=== PATIENT | female | born 1985 | race Caucasian/White ===

== ENCOUNTER 2016-06-01 18:01 | Emergency (ER) | payer SELFPAY ==
[2016-06-01 18:23] LABS: BASOPHILS % 0.6 (0.0-1.5); EOSINOPHILS % 1.8 % (0.0-6.8); MEAN CORPUSCULAR VOLUME 85.3 fl (80.0-100.0); MONOCYTES % 3.4 % (0.0-11.0); NEUTROPHILS # 6.2 # k/uL (1.4-7.7)
[2016-06-01] MEDS ORDERED: 0.9 % SODIUM CHLORIDE 1,000 ML IV ONE ×2 (18:30→18:31)
[2016-06-01 18:34] LABS: eGFR (African) > 60; eGFR (Non-African) > 60
--- NOTE | 2016-06-01 19:48 | ED Physician Documentation ---
Palpitations - HISTORIAN Historian: patient - HPI Stated Complaint: "Feels like Heart is Racing" Chief Complaint: Palpitations Onset: minutes Timing: sudden onset Associated Symptoms: heart racing Further Comments: yes (31 year old female patient presents with complaints of "heart racing". Patient reports tingling feeling, faint feeling. Denies caffeine use, no energy drinks, denies use of diet medications, denies drug use. ) - ROS CONST: no problems RESP: denies: productive cough, bloody cough GI/: denies: nausea, vomiting with blood, black stools, abdominal pain MS/SKIN/LYMPH: denies: ankle swelling, calf pain, rash, leg pain, other EYES/ENT: none NEURO/PSYCH: none - SOCIAL HX Smoking History: non-smoker Drug Use: marijuana - FAMILY HX Family History: none - PAST HX Cardiac Disease: other (renal calculi, PCOS, ovarian cyst) Surgeries/Procedures: , other (right ankle) Allergies/Adverse Reactions: Allergies Allergy/AdvReac Type Severity Reaction Status Date / Time meperidine HCl [From Demerol] Allergy Intermediate Rash Verified 06/01/16 18:13 silver sulfadiazine Allergy Intermediate Blister Verified 06/01/16 18:13 [From Silvadene] Home Medications: Ambulatory Orders Medication Instructions Recorded NK [NK] 06/01/16 - VITAL SIGNS Vital Signs: Vital Signs Temp Pulse Resp BP Pulse Ox 98 F 83 20 118/70 99 06/01/16 20:22 06/01/16 20:22 06/01/16 20:22 06/01/16 20:22 06/01/16 20:22 - REVIEWED ASSESSMENTS Nursing Assessment Reviewed: Yes Vitals Reviewed: Yes Progress - Progress Progress: strong odor of THC. Tachycardia resolved with 1L NS. Reviewed lab and UDS results with patient. Encouraged patient to stop using THC, explained it could be possible cause of palpitations. - EKG/XRAY/CT EKG: rhythm (SR, no acute changes, rate 92) ED Results Lab/Radiology - Lab Results Lab Results: Lab Results 06/01/16 06/01/16 06/01/16 18:15 18:15 18:15 WBC 9.10 K/ul K/ul (4.00-12.00) RBC 4.66 M/ul M/ul (3.90-5.20) Hgb 13.5 g/dL g/dL (12.0-16.0) Hct 39.7 % % (34.5-46.5) MCV 85.3 fl fl (80.0-100.0) MCH 29.0 pg pg (28.0-34.0) MCHC 34.0 g/dL g/dL (30.0-36.0) RDW 13.0 % % (11.3-14.3) Plt Count 320 K/mm3 K/mm3 (130-400) Neut % (Auto) 68.6 % % (39.0-79.0) Lymph % (Auto) 24.4 % % (16.0-50.0) Wilson % (Auto) 3.4 % % (0.0-11.0) Eos % (Auto) 1.8 % % (0.0-6.8) Baso % (Auto) 0.6 (0.0-1.5) Neut # 6.2 # k/uL # k/uL (1.4-7.7) Lymph # 2.2 # k/uL # k/uL (0.6-4.0) Wilson # 0.3 # k/uL # k/uL (0.0-0.9) Eos # 0.2 # k/uL # k/uL (0.0-0.6) Baso # 0.1 # k/uL # k/uL (0.0-0.5) Reactive Lymphs % 1.2 % % (0.0-5.0) Reactive Lymphs # 0.1 # k/uL # k/uL (0.0-0.8) Sodium 136 mmol/L mmol/L (136-145) Potassium 3.4 mmol/L L mmol/L (3.5-5.0) Chloride 103 mmol/L mmol/L (98-110) Carbon Dioxide 27 mmol/L mmol/L (20-32) BUN 14 mg/dL mg/dL (10-26) Creatinine 0.7 mg/dL mg/dL (0.4-1.5) Estimated Creat Clear 125 Est GFR ( Amer) > 60 (60 - ) Est GFR (Non-Af Amer) > 60 (60 - ) Glucose 135 mg/dL H mg/dL (70-99) Calcium 9.6 mg/dL mg/dL (8.5-10.5) Total Bilirubin 0.4 mg/dL mg/dL (0.2-1.2) AST 17 U/L U/L (0-41) ALT 13 U/L U/L (0-45) Alkaline Phosphatase 46 U/L U/L (46-116) Troponin I < 0.03 ng/mL L ng/mL (0.03-0.06) Total Protein 7.3 g/dL g/dL (6.0-8.5) Albumin 4.8 g/dL g/dL (3.0-5.5) - Orders Orders: ED Orders Category Date Time Status CBC/PLATELET/DIFF Stat Lab 06/01/16 18:15 Completed CMP Stat Lab 06/01/16 18:15 Completed TROPONIN I (cTnI) Stat Lab 06/01/16 18:15 Completed Urine drug screen [DRUG SCREEN URINE MEDICAL ONLY] Stat Lab 06/01/16 Ordered 0.9 % Sodium Chloride [Normal Saline] 1,000 ml Med 06/01/16 18:30 Discontinued IV .STK-MED 0.9 % Sodium Chloride [Normal Saline] 1,000 ml Med 06/01/16 18:31 Discontinued IV NOW EKG WITH COMPARISON Stat Ther 06/01/16 18:11 Ordered Palpitations Physical Exam - EXAM General Appearance: anxious RESPIRATORY: no respiratory distress, breath sounds nml, chest non-tender, respiratory distress CVS: heart sounds normal, equal pulses, no murmur, no gallop, PMI nml, no JVD, no friction rub, tachycardia (intermittent tachycardia noted, max rate 130) ABDOMEN: soft, no organomegaly, normal bowel sounds, no abdominal bruit, no distension SKIN: normal color, warm/dry, NR, INT, PAL, DR EXTREMITIES: non-tender, normal range of motion, no evidence of injury, no edema , J, [employer]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 Marijuana can cause palpitations and tachycardia like you experienced today. Home Medications: Ambulatory Orders NK [NK] 04/19/17 Condition: Stable Disposition: 01 HOME, SELF-CARE Decision to Admit: NO Decision Time: 19:48
[2016-06-01 20:24] VITALS: BP 118/70
== END 2016-06-01 19:55 | disposition home or self-care (01) ==
LOC: ED 18:01
DX: R00.2 Palpitations (principal); F12.90 Cannabis use, unspecified, uncomplicated
CPT/HCPCS: 80053; 84484; 85025; J7030; 99283; S1016

== ENCOUNTER 2016-09-02 15:11 | Emergency (ER) | payer SELFPAY ==
--- NOTE | 2016-09-02 15:21 | ED Physician Documentation ---
General Adult - HISTORIAN Historian: patient - HPI Chief Complaint: Dizziness Onset: days ago (3 days) Timing: still present, worse Severity: mild Modifying Factors: dizziness worse with Further Comments: yes - ROS CONST: sweating, chills. denies: fever GI/: denies: abdominal pain, problems urinating, vomiting, nausea, diarrhea, black stools - PAST HX Past History: other (kidney stones) Surgeries/Procedures: cholecystectomy, other (urethral stinitnng) Allergies/Adverse Reactions: Allergies Allergy/AdvReac Type Severity Reaction Status Date / Time meperidine HCl [From Demerol] Allergy Intermediate Rash Verified 09/02/16 15:39 silver sulfadiazine Allergy Intermediate Blister Verified 09/02/16 15:39 [From Silvadene] Home Medications: Ambulatory Orders Medication Instructions Recorded Hydroxyzine Pamoate [Vistaril] 25 mg PO Q6 PRN #30 capsule 09/02/16 - SOCIAL HX Smoking History: non-smoker Alcohol Use: occasionally Drug Use: none - FAMILY HX Family History: No - VITAL SIGNS Vital Signs: Vital Signs Temp Pulse Resp BP Pulse Ox 118/70 06/01/16 20:22 - REVIEWED ASSESSMENTS Nursing Assessment Reviewed: Yes Vitals Reviewed: Yes Progress - Progress Progress: Post infusion of liter of NS patient states that she did not fell a lot better. Was not as dizzy but still felt weak, and tired. After discussing the blood results with her we discussed that she seemed to be having a lot of stress in her life. Was trying to start a new business. She was not sleeping well, working long hours. I discussed that it appears that she is starting to have some health issues related to her stress level. General Adult Physical Exam - PHYSICAL EXAM GENERAL APPEARANCE: mild distress EENT: eye inspection normal, pharynx normal, no signs of dehydration NECK: normal inspection, thyroid normal, supple RESPIRATORY: no resp distress, chest non-tender, breath sounds normal. No: wheezes, rales, rhonchi CVS: reg rate & rhythm, heart sounds normal, equal pulses, no murmur, no gallop ABDOMEN: soft, no organomegaly, normal bowel sounds, no abdominal bruit RECTAL: normal exam BACK: normal inspection, no CVA tenderness SKIN: warm/dry, normal color EXTREMITIES: non-tender, normal range of motion NEURO: oriented X3, CN's nml as tested, motor nml, sensation nml, mood/affect nml, cognition normal Discharge Clincal Impression: Anxiety Prescriptions: Hydroxyzine Pamoate [Vistaril] 25 mg PO Q6 PRN #30 capsule PRN Reason: Anxiety Referrals: Mae Stroud, ALEX [Primary Care Provider] - 2 Days Additional Instructions: Encourage fluids. drink enough that your urine is just a light yellow color. Try to carve out some "me" time for yourself. If need a sleep aid try some melatonin 3-5mg once at bedtime. Home Medications: Ambulatory Orders Hydroxyzine Pamoate [Vistaril] 25 mg PO Q6 PRN #30 capsule 09/02/16 Condition: Stable Disposition: 01 HOME, SELF-CARE Decision to Admit: NO Date of Decison to Admit: 09/02/16 Decision Time: 17:43
[2016-09-02] MEDS: 0.9 % SODIUM CHLORIDE 1,000 ML IV SCH (15:30)
[2016-09-02] MEDS ORDERED: 0.9 % SODIUM CHLORIDE 1,000 ML IV ONE (15:31)
[2016-09-02 17:10] LABS: eGFR (African) > 60; eGFR (Non-African) > 60
[2016-09-02 17:27] LABS: BASOPHILS % 0.5 (0.0-1.5); EOSINOPHILS % 2.8 % (0.0-6.8); MEAN CORPUSCULAR HEMOGLOBIN 29.6 pg (28.0-34.0); MEAN CORPUSCULAR VOLUME 87.7 fl (80.0-100.0); MONOCYTES % 4.4 % (0.0-11.0); NEUTROPHILS # 3.6 # k/uL (1.4-7.7)
[2016-09-02] MEDS ORDERED: hydrOXYzine HCL 50 MG/ML VIAL IM SCH (18:00)
[2016-09-02 18:23] VITALS: BP 121/65
== END 2016-09-02 18:30 | disposition home or self-care (01) ==
LOC: ED 15:11
DX: F41.9 Anxiety disorder, unspecified (principal)
CPT/HCPCS: 80053; 85025; J7030; 96360; 99283; S1016

== ENCOUNTER 2016-10-16 11:54 | Emergency (ER) | payer SELFPAY ==
--- NOTE | 2016-10-16 12:40 | ED Physician Documentation ---
Female Urogenital Problems - HISTORIAN Historian: patient - HPI Stated Complaint: "Kidney Pain" Chief Complaint: Female Urogenital Problems Additional Information: c/o back pain dysuria pmh kid stones x12 in past requests ct Onset: other (in under tx w/pred fr [facility] [place] ED viral ing-on pred red dose) Severity: moderate Further Comments: yes (no blood in urine no sign inmfection) - Associated Symptoms Urinary Symptoms: frequent urination, discomfort w/ urination, burning w/ urination, urgency w/ urination, pain w/ urination. denies: blood in urine - ROS CONST: recent illness (as above) GI/: nausea. denies: vomiting CVS/RESP: none EYES/ENT: denies: problems with vision - PAST HX Past History: other (renal lith w/stents) Allergies/Adverse Reactions: Allergies Allergy/AdvReac Type Severity Reaction Status Date / Time meperidine HCl [From Demerol] Allergy Intermediate Rash Verified 09/02/16 15:39 silver sulfadiazine Allergy Intermediate Blister Verified 09/02/16 15:39 [From Silvadene] Home Medications: Ambulatory Orders Medication Instructions Recorded Hydroxyzine Pamoate [Vistaril] 25 mg PO Q6 PRN #30 capsule 09/02/16 - SOCIAL HX Smoking History: non-smoker Alcohol Use: none Drug Use: none - FAMILY HX Family History: none - VITAL SIGNS Vital Signs: Vital Signs Temp Pulse Resp BP Pulse Ox 70 18 116/69 99 10/16/16 11:54 10/16/16 11:54 10/16/16 11:54 10/16/16 11:54 - REVIEWED ASSESSMENTS Nursing Assessment Reviewed: Yes ED Results Lab/Radiology - Orders Orders: ED Orders Category Date Time Status CT ABD & PELVIS W/O CON Stat Exams 10/16/16 12:32 Ordered RENAL STONE PROTOCOL [CT ABD & PELVIS W/O CON] Stat Exams 10/16/16 Ordered UA [URINALYSIS] Routine Lab 10/16/16 Ordered Female Urogenital Problems - EXAM General Appearance: mild distress EENT: eye inspection normal Neck: nml inspection Respiratory: no resp. distress, breath sounds nml. No: respiratory distress CVS: reg rate & rhythm, heart sounds normal Abdomen: soft, non-tender Back: other (questionable renal punch test isai on rt) Skin: color nml, no rash, warm,dry. No: cyanosis, diaphoresis, pallor Extremities: non-tender, normal range of motion Neuro: oriented X3, motor nml, sensation nml Discharge Referrals: Mae Stroud, MARLIN [Primary Care Provider] - 2 Days Home Medications: Ambulatory Orders Hydroxyzine Pamoate [Vistaril] 25 mg PO Q6 PRN #30 capsule 09/02/16
--- NOTE | 2016-10-16 13:17 | Diagnostic Imaging Report ---
[facility] [address] [facility] [address] [place], [place]. [address] Report Submission Date: Oct 16, 2016 1:13:25 PM CDT Patient Study Name: ALOK MASTERS Date: Oct 16, 2016 12:42:36 PM CDT Modality Type: CT\SR Gender: F Description: CT ABD & PELVIS W/O CO : 81 Institution: [facility] Physician: NICHOLAS MCNEILL - JAKOB CT abdomen and pelvis without contrast Date of study: October 16, 2016. CLINICAL HISTORY: PATIENT STATES PAIN IN BACK AND RUQ FOR COUPLE DAYS. STATES HISTORY OF KIDNEY STONES. SURGICAL HISTORY CHOLECYSTECTOMY AND SURGERY ON LEFT KIDNEY (Hx) / HX OF RENAL STONES (DICOM Hx) TECHNIQUE: 1.3 mm contiguous axial images of the abdomen and pelvis non contrast. FINDINGS: The lung bases are clear. Comparison is made with February 12, 2016. Abdomen: The liver, pancreas and spleen are normal in appearance. Cholecystectomy changes are noted. The kidneys are normal in size and surface contour. There is no evidence of renal or ureteral calculi identified. No hydronephrosis or perinephric stranding is evident. The aorta is normal in caliber. The small bowel is nondistended. There is no evidence of free air or free fluid. Pelvis: The colon is normal in appearance. A 7 mm calculus is present in the bladder adjacent to the left ureterovesical junction. Bilateral ovarian cysts are present measuring 3.1 cm on the right and 1.8 cm on the left. There is no evidence of free air or free fluid. The sigmoid colon and rectum are normal. The remaining pelvic structures are within normal limits and the bones of the pelvis are intact. IMPRESSION: 7 mm intravesicular calculus adjacent to the left ureterovesical junction. Bilateral ovarian cysts. Electronically signed on Oct 16, 2016 1:13:25 PM CDT by: Rita MIRZA
[2016-10-16 13:44] VITALS: BP 101/68
[2016-10-17 06:21] LABS: APPEARANCE,URINE CLEAR (CLEAR); COLOR,URINE YELLOW (YELLOW); OCCULT BLOOD,URINE NEGATIVE (NEGATIVE); UROBILINOGEN URINE 0.2 Eu (0.2-1.0)
== END 2016-10-16 13:42 ==
LOC: ED 11:54
DX: N23 Unspecified renal colic (principal)
CPT/HCPCS: 74176; 81002; 99283

== ENCOUNTER 2017-11-22 03:36 | Emergency (ER) | payer BC ==
--- NOTE | 2017-11-22 03:59 | ED Physician Documentation ---
General Adult - HPI Stated Complaint: urinary pain Chief Complaint: General Adult Additional Information: Patient with a past medical history of interstitial cystitis (self-caths at times) and renal stones presents to ED with a 4 hour history of difficulty with urination and painful urination. Patient states she was discharged from on Monday after being admitted for left renal stone (6mm). She has an appointment with Urologist today at 1400. Onset: hours (4) Timing: worse Severity: moderate - ROS CONST: denies: fever, sweating EYES/ENT: none CVS/RESP: denies: chest pain, shortness of breath GI/: problems urinating. denies: abdominal pain MS/SKIN/LYMPH: none NEURO/PSYCH: denies: headache - PAST HX Past History: other (interstitial cystitis) Other History: none Surgeries/Procedures: none Allergies/Adverse Reactions: Allergies Allergy/AdvReac Type Severity Reaction Status Date / Time meperidine HCl [From Demerol] Allergy Intermediate Rash Verified 11/22/17 04:00 silver sulfadiazine Allergy Intermediate Blister Verified 11/22/17 04:00 [From Silvadene] Home Medications: Ambulatory Orders Medication Instructions Recorded Cyclobenzaprine HCl 10 mg PO DAILY 11/22/17 Diazepam 10 mg PO DAILY 11/22/17 - SOCIAL HX Smoking History: non-smoker Alcohol Use: none Drug Use: none - FAMILY HX Family History: No - VITAL SIGNS Vital Signs: Vital Signs Temp Pulse Resp BP Pulse Ox 101/68 10/16/16 13:42 - REVIEWED ASSESSMENTS Nursing Assessment Reviewed: Yes Vitals Reviewed: Yes Progress - Results/Orders Results/Orders: CT abdomen pelvis without contrast History: Difficulty with urination. Technique: Transaxial computed tomographic images of the abdomen pelvis were obtained without the use of intravenous contrast according to standard protocol. Findings: The lung bases are clear. The heart size is normal. The liver is normal. The gallbladder is not visualized. The pancreas spleen and adrenal glands are normal. There is a 5 mm calculus just to the left of midline near the ureterovesicular junction this does not result in significant hydronephrosis or hydroureter. No additional intrarenal calculi present. There is no bowel wall thickening or dilation identified. The appendix is not definitely identified. The vascular structures demonstrate trace atherosclerosis. No adenopathy present. The bladder is normal. The uterus is unremarkable. There is no free fluid. The osseous structures are normal. Impression: 1. 5 mm calculus near the left ureterovesicular junction in the left bladder base without resulting hydronephrosis or hydroureter. No additional intrarenal calculi present. 2. Small pelvic phleboliths. Electronically signed on Nov 22, 2017 5:08:02 AM CDT by: Arsh POE low probability for infection. - Progress Progress: 0541 Patient is still having bladder spams. CT abd/pelvis shows 5mm stone in bladder. No hydronephrosis ED Results Lab/Radiology - Orders Orders: ED Orders Category Date Time Status URINALYSIS Routine Lab 11/22/17 Ordered General Adult Physical Exam - PHYSICAL EXAM GENERAL APPEARANCE: no distress EENT: ENT inspection normal NECK: supple RESPIRATORY: no resp distress, breath sounds normal CVS: reg rate & rhythm, heart sounds normal ABDOMEN: soft, normal bowel sounds, non-tender BACK: no CVA tenderness SKIN: warm/dry, normal color EXTREMITIES: non-tender, no edema NEURO: oriented X3 Discharge Clincal Impression: Painful bladder spasm Referrals: Mae Stroud PRN [REFERRING] - 2 Days Disposition: 01 HOME, SELF-CARE Decision to Admit: NO Date of Decison to Admit: 11/22/17 Decision Time: 05:43
[2017-11-22 04:34] LABS: eGFR (Non-African) > 60
[2017-11-22] MEDS: 0.9 % SODIUM CHLORIDE 500 ML IV ONE (04:42)
[2017-11-22] MEDS: KETOROLAC TROMETHAMINE 30 MG/1ML VIAL IVP ONE (04:43)
[2017-11-22] MEDS: TAMSULOSIN HCL 0.4 MG CAP.ER.24H PO ONE (04:43)
[2017-11-22] MEDS: HYDROcodone /APAP 10/325 1 EACH TABLET PO ONE (05:45)
--- NOTE | 2017-11-22 06:44 | Diagnostic Imaging Report ---
VIELKA FRENCH [facility] [address] [facility] [address] [place], [place]. [address] Report Submission Date: Nov 22, 2017 5:08:02 AM CDT Patient Study Name: ALOK MASTERS Date: Nov 22, 2017 4:43:56 AM CDT Modality Type: CT\SR Gender: F Description: CT ABD PELVIS W/O CO : 81 Institution: [facility] Physician: VIELKA FRENCH CT abdomen pelvis without contrast History: Difficulty with urination. Technique: Transaxial computed tomographic images of the abdomen pelvis were obtained without the use of intravenous contrast according to standard protocol. Findings: The lung bases are clear. The heart size is normal. The liver is normal. The gallbladder is not visualized. The pancreas spleen and adrenal glands are normal. There is a 5 mm calculus just to the left of midline near the ureterovesicular junction this does not result in significant hydronephrosis or hydroureter. No additional intrarenal calculi present. There is no bowel wall thickening or dilation identified. The appendix is not definitely identified. The vascular structures demonstrate trace atherosclerosis. No adenopathy present. The bladder is normal. The uterus is unremarkable. There is no free fluid. The osseous structures are normal. Impression: 1. 5 mm calculus near the left ureterovesicular junction in the left bladder base without resulting hydronephrosis or hydroureter. No additional intrarenal calculi present. 2. Small pelvic phleboliths. Electronically signed on Nov 22, 2017 5:08:02 AM CDT by: Arsh MIRZA
[2017-11-22 06:51] VITALS: BP 122/78
[2017-11-22 08:40] LABS: APPEARANCE,URINE CLOUDY (CLEAR); COLOR,URINE YELLOW (YELLOW)
[2017-11-22 08:41] LABS: OCCULT BLOOD,URINE TRACE-INTACT (NEGATIVE); PH URINE 5.5 (5.0 - 8.0); UROBILINOGEN URINE 0.2 Eu (0.2-1.0)
== END 2017-11-22 06:15 | disposition home or self-care (01) ==
LOC: ED 03:36
DX: R39.89 Other symptoms and signs involving the genitourinary system (principal)
CPT/HCPCS: 74176; 80048; 81002; 84703; 87086; J1885; J7060; 96365; 96375; S1016

== ENCOUNTER 2018-02-22 13:02 | Emergency (ER) | payer BC ==
--- NOTE | 2018-02-22 13:13 | ED Physician Documentation ---
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 She states that she has pain with movement in the thumb area. Swelling noted. No decrease in sensation. Decrease in sensation) - ROS CONST: no problems - PAST HX Past History: none Immunizations: UTD Allergies/Adverse Reactions: Allergies Allergy/AdvReac Type Severity Reaction Status Date / Time meperidine HCl [From Demerol] Allergy Intermediate Rash Verified 02/22/18 13:38 silver sulfadiazine Allergy Intermediate Blister Verified 02/22/18 13:38 [From Silvadene] Home Medications: Ambulatory Orders Medication Instructions Recorded Diazepam 10 mg PO DAILY 11/22/17 - SOCIAL HX Smoking History: cigarettes Alcohol Use: none Drug Use: none - FAMILY HX Family History: none - VITAL SIGNS Vital Signs: Vital Signs Temp Pulse Resp BP Pulse Ox 122/78 11/22/17 06:15 - REVIEWED ASSESSMENTS Nursing Assessment Reviewed: Yes Vitals Reviewed: Yes Progress - Progress Progress: 1400: notified of results and plan she is agreeable DG ED Results Lab/Radiology - Radiology Radiology Impressions: Examination: Plain film right hand History: X-ray patient was gardening and a rock fell on thumb - (Hx) Comparison exams: None available Findings: 3 views of the right hand demonstrate normal cortical margins. No fracture. No dislocation. No soft tissue abnormality. Impression: No acute osseous abnormality Electronically signed on Feb 22, 2018 2:00:21 PM CARPENTER REPAIRER by: Ryan Lorenz Examination: Plain film right wrist History: X-ray pt was gardening and a rock fell on hand (Hx) Comparison exams: None available Findings: 3 views of the right wrist demonstrate normal cortical margins. No fracture. No dislocation. No soft tissue abnormality. Impression: No acute osseous abnormality Electronically signed on Feb 22, 2018 2:01:17 PM CARPENTER REPAIRER by: Ryan Lorenz Hand Injury Physical Exam - Exam General Appearance: no acute distress, alert Hand: nml inspection, tenderness (thumb ), soft tissue tenderness, limited ROM, pain, other (cap refill + ) Wrist: normal inspection, non-tender Neuro: sensation nml, motor nml Vascular: no vascular compromise Forearm/Elbow/Arm: uninjured above wrist Head/ENT: nml inspection Neck/Back: nml inspection Resp/CVS: chest non-tender, breath sounds nml, heart sounds nml Abdomen: non-tender Discharge Clincal Impression: Hand pain, right Referrals: Otilio Luna MD [Primary Care Provider] - 2 Days Comments: 1. Keep area elevated and ice for comfort 2. Tylenol or Ibuprofen as directed for pain 3. See PCP in 2-4 days for unchanged symptoms 4. Return to ER for any concerns Condition: Stable Decision to Admit: NO Date of Decison to Admit: 02/22/18 Decision Time: 14:10
[2018-02-22 13:39] VITALS: BP 116/68
[2018-02-22] MEDS ORDERED: IBUPROFEN 200 MG TABLET PO ONE (14:09)
--- NOTE | 2018-02-22 19:08 | Diagnostic Imaging Report ---
ABRAHAM SALAZAR [facility] [address] [facility] [address] [address] Report Submission Date: Feb 22, 2018 2:00:21 PM BEAVER TRAPPER Patient Study Name: ALOK MASTERS Date: Feb 22, 2018 1:14:51 PM BEAVER TRAPPER Modality Type: DX Gender: F Description: UPPER EXTREMITY : 81 Institution: [facility] Physician: ABRAHAM SALAZAR Examination: Plain film right hand History: X-ray patient was gardening and a rock fell on thumb - (Hx) Comparison exams: None available Findings: 3 views of the right hand demonstrate normal cortical margins. No fracture. No dislocation. No soft tissue abnormality. Impression: No acute osseous abnormality Electronically signed on Feb 22, 2018 2:00:21 PM BEAVER TRAPPER by: Ryan MIRZA
--- NOTE | 2018-02-22 19:09 | Diagnostic Imaging Report ---
ABRAHAM SALAZAR [facility] [address] [facility] [address] [address] Report Submission Date: Feb 22, 2018 2:01:17 PM DUST MOP MAKER Patient Study Name: ALOK MASTERS Date: Feb 22, 2018 1:18:35 PM DUST MOP MAKER Modality Type: DX Gender: F Description: UPPER EXTREMITY : 81 Institution: [facility] Physician: ABRAHAM SALAZAR Examination: Plain film right wrist History: X-ray pt was gardening and a rock fell on hand (Hx) Comparison exams: None available Findings: 3 views of the right wrist demonstrate normal cortical margins. No fracture. No dislocation. No soft tissue abnormality. Impression: No acute osseous abnormality Electronically signed on Feb 22, 2018 2:01:17 PM DUST MOP MAKER by: Ryan MIRZA
== END 2018-02-22 14:22 ==
LOC: ED 13:02
DX: M79.641 Pain in right hand (principal); W23.0XXA Caught, crushed, jammed, or pinched between moving objects, initial encounter; Y93.H2 Activity, gardening and landscaping; Y92.9 Unspecified place or not applicable; Y99.0 Civilian activity done for income or pay
CPT/HCPCS: 73110; 73130; 81025; 99282; 99284